=== PATIENT | male | born 1960 | race Caucasian/White ===

== ENCOUNTER 2022-02-20 23:01 | Observation (INO) ==
[2022-02-21] MEDS ORDERED: Vancomycin 1,250 MG/262.5 ML IV.SOLN IVPB ONE (00:59)
[2022-02-21] MEDS ORDERED: Piperacillin/Tazobactam 3.375 GM in 0.9 % Sodium Chloride Mini Bag 100 ML IVPB ONE (00:59)
[2022-02-21] MEDS ORDERED: Iopamidol - 370 500 ML MLS IVP ONE (00:59)
[2022-02-21 01:16] LABS: Basophils # 0.1 K/mcL (0.0-0.2); Basophils % 0.7 %; Eosinophils # 0.4 K/mcL (0.0-0.6); Eosinophils % 4.3 %; Hematocrit 36.1 % (37.5-50.1); Hemoglobin 12.1 g/dL (12.9-16.9); Immature Granulocytes % 0.4 % (0-4); Lymphocytes % 21.4 %; Mean Corpuscular HGB Conc 33.5 g/dL (31.6-35.5); Mean Corpuscular Hemoglobin 29.3 pg (28.0-33.3); Mean Corpuscular Volume 87.4 fL (83.0-100.0); Mean Platelet Volume 10.5 fL (9.4-12.4); Monocytes # 1.6 K/mcL (0.0-1.3); Monocytes % 17.6 %; Neutrophils # 5.1 K/mcL (1.6-8.9); Platelet Count 194 K/mcL (140-400); Red Blood Count 4.13 M/mcL (4.19-5.50); Segmented Neutrophils % 55.6 %; White Blood Count 9.2 K/mcL (4.3-11.1)
[2022-02-21 01:32] LABS: BUN/Creatinine Ratio 20 (6-26); Blood Urea Nitrogen 16 mg/dL (8-23); Calcium 9.2 mg/dL (8.6-10.3); Carbon Dioxide 26 mEq/L (23-29); Chloride 103 mEq/L (98-107); Glucose 136 mg/dL (70-105); Osmolality,Calculated 285 (280-300); Potassium 3.7 mEq/L (3.5-5.1); Sodium 136 mEq/L (136-145)
[2022-02-21] MEDS ORDERED: Naloxone 0.4 MG/ML INJ IVP PRN (02:54)
[2022-02-21] MEDS ORDERED: Ondansetron ODT 4 MG TAB.RAPDIS SL PRN (03:01)
[2022-02-21] MEDS ORDERED: Acetaminophen 325 MG TABLET PO PRN (03:01)
[2022-02-21] MEDS ORDERED: Melatonin 3 MG TABLET PO PRN (03:01)
[2022-02-21] MEDS ORDERED: Dextrose Gel 15 GM/37.5 ML TUBE PO PRN ×2 (03:53)
[2022-02-21] MEDS ORDERED: *HR* Dextrose 50 % in Water (Syg) 50 ML SYRINGE IVP PRN (03:53)
[2022-02-21] MEDS ORDERED: D5% in Water 1,000 ML IVC PRN (03:53)
[2022-02-21] MEDS ORDERED: Piperacillin/Tazobactam 3.375 GM in 0.9 % Sodium Chloride Mini Bag 100 ML IVPB SCH (08:00)
[2022-02-21 08:33] LABS: Hematocrit 35.6 % (37.5-50.1); Hemoglobin 11.9 g/dL (12.9-16.9); Mean Corpuscular HGB Conc 33.4 g/dL (31.6-35.5); Mean Corpuscular Hemoglobin 29.2 pg (28.0-33.3); Mean Corpuscular Volume 87.5 fL (83.0-100.0); Mean Platelet Volume 10.5 fL (9.4-12.4); Platelet Count 177 K/mcL (140-400); Red Blood Count 4.07 M/mcL (4.19-5.50); Red Cell Distribution Width 13.8 % (11.5-14.5); White Blood Count 8.7 K/mcL (4.3-11.1)
[2022-02-21 08:51] LABS: BUN/Creatinine Ratio 17 (6-26); Blood Urea Nitrogen 12 mg/dL (8-23); Calcium 8.7 mg/dL (8.6-10.3); Carbon Dioxide 26 mEq/L (23-29); Chloride 104 mEq/L (98-107); Glucose 118 mg/dL (70-105); Magnesium 1.8 mg/dL (1.6-2.6); Osmolality,Calculated 289 (280-300); Phosphorous 3.4 mg/dL (2.7-4.5); Potassium 3.8 mEq/L (3.5-5.1); Sodium 139 mEq/L (136-145)
[2022-02-21] MEDS: Insulin LISPRO 300 UNITS/3 ML VIAL SUBQ SCH ×2 (09:05→11:28)
[2022-02-21] MEDS ORDERED: predniSONE 20 MG TABLET PO ONE (10:15)
[2022-02-21 11:10] VITALS: BP 118/67; PULSE 46; TEMP 98.8; O2SAT 97
[2022-02-21] MEDS ORDERED: Vancomycin 1,250 MG/262.5 ML IV.SOLN IVPB SCH (15:00)
[2022-02-21] MEDS ORDERED: Insulin LISPRO 300 UNITS/3 ML VIAL SUBQ SCH (21:00)
[2022-02-22] MEDS ORDERED: predniSONE 20 MG TABLET PO SCH (09:00)
== END 2022-02-21 13:07 | disposition home or self-care (01) ==
LOC: EMEROOARM 23:01 → 2ANU 23:01 → SUATTDRO 02-21 02:54 → 2ANU 02-21 04:20
PROVIDERS: ADMIT Internal Medicine; ATTEND Internal Medicine

== ENCOUNTER 2022-03-07 16:18 | Inpatient (IN) ==
[2022-03-07] MEDS ORDERED: Iopamidol - 370 500 ML MLS IVP ONE ×2 (17:58→19:19)
[2022-03-07 18:15] LABS: Basophils # 0.1 K/mcL (0.0-0.2); Basophils % 0.7 %; Eosinophils # 0.4 K/mcL (0.0-0.6); Eosinophils % 2.2 %; Hematocrit 40.2 % (37.5-50.1); Hemoglobin 13.4 g/dL (12.9-16.9); Immature Granulocytes % 1.6 % (0-4); Lymphocytes # 2.3 K/mcL (0.6-4.6); Mean Corpuscular HGB Conc 33.3 g/dL (31.6-35.5); Mean Corpuscular Hemoglobin 29.5 pg (28.0-33.3); Mean Corpuscular Volume 88.5 fL (83.0-100.0); Monocytes # 1.7 K/mcL (0.0-1.3); Monocytes % 10.4 %; Neutrophils # 11.9 K/mcL (1.6-8.9); Platelet Count 229 K/mcL (140-400); Red Blood Count 4.54 M/mcL (4.19-5.50); Red Cell Distribution Width 15.5 % (11.5-14.5); Segmented Neutrophils % 71.1 %; White Blood Count 16.7 K/mcL (4.3-11.1)
[2022-03-07 18:30] LABS: Prothrombin Time 11.1 Seconds (9.4-12.1)
[2022-03-07 18:36] LABS: BUN/Creatinine Ratio 23 (6-26); Blood Urea Nitrogen 22 mg/dL (8-23); Calcium 9.2 mg/dL (8.6-10.3); Carbon Dioxide 28 mEq/L (23-29); Chloride 104 mEq/L (98-107); Creatine Kinase 19 Units/L (30-223); Glucose 127 mg/dL (70-105); Osmolality,Calculated 291 (280-300); Potassium 3.9 mEq/L (3.5-5.1); Sodium 138 mEq/L (136-145); Troponin I < 0.03 ng/mL (< 0.04)
[2022-03-07] MEDS ORDERED: Vancomycin 1,750 MG in 0.9 % Sodium Chloride 250 ML IVPB ONE (20:14)
[2022-03-07] MEDS ORDERED: Morphine Sulfate 2 MG/ML SYRINGE IVP ONE (21:04)
[2022-03-07] MEDS ORDERED: Melatonin 3 MG TABLET PO PRN (21:13)
[2022-03-07] MEDS ORDERED: Naloxone 0.4 MG/ML INJ IVP PRN (21:13)
[2022-03-07] MEDS ORDERED: Vancomycin 1,750 MG/517.5 ML IV.SOLN IVPB ONE (21:30)
[2022-03-07] MEDS ORDERED: Dextrose Gel 15 GM/37.5 ML TUBE PO PRN ×2 (23:59)
[2022-03-07] MEDS ORDERED: *HR* Dextrose 50 % in Water (Syg) 50 ML SYRINGE IVP PRN (23:59)
[2022-03-07] MEDS ORDERED: D5% in Water 1,000 ML IVC PRN (23:59)
[2022-03-08] MEDS: cefTRIAXone 1,000 MG in 0.9 % Sodium Chloride Mini Bag 100 ML IVPB SCH ×2 (01:13→23:55)
[2022-03-08] MEDS: Acetaminophen 325 MG TABLET PO PRN ×2 (01:46→07:48)
[2022-03-08 02:49] LABS: Amphetamine Screen,Urine Negative ng/mL (Cutoff=1000); Barbiturate Screen,Urine Negative ng/mL (Cutoff=200); Benzodiazepines Screen,Urine Negative ng/mL (Cutoff=200); Cannabinoid Screen,Urine Positive ng/mL (Cutoff = 50); Cocaine Screen,Urine Negative ng/mL (Cutoff= 300); Opiate Screen,Urine Positive ng/mL (Cutoff=300); Phencyclidine Screen,Urine Negative ng/mL (Cutoff=25)
[2022-03-08] MEDS: *HR* Heparin 5,000 UNIT/ML VIAL SQ SCH ×3 (06:22→22:00)
[2022-03-08] MEDS: Insulin LISPRO 300 UNITS/3 ML VIAL SUBQ SCH ×3 (07:45→17:27)
[2022-03-08] MEDS: Aspirin Enteric Coated 81 MG Tablet PO SCH (09:52)
[2022-03-08 10:01] LABS: Hematocrit 41.3 % (37.5-50.1); Hemoglobin 13.5 g/dL (12.9-16.9); Mean Corpuscular HGB Conc 32.7 g/dL (31.6-35.5); Mean Corpuscular Hemoglobin 28.8 pg (28.0-33.3); Mean Corpuscular Volume 88.2 fL (83.0-100.0); Mean Platelet Volume 10.7 fL (9.4-12.4); Platelet Count 198 K/mcL (140-400); Red Blood Count 4.68 M/mcL (4.19-5.50); Red Cell Distribution Width 15.5 % (11.5-14.5); White Blood Count 13.8 K/mcL (4.3-11.1)
[2022-03-08] MEDS: Vancomycin 1,250 MG/262.5 ML IV.SOLN IVPB SCH ×2 (10:18→22:00)
[2022-03-08 10:22] LABS: BUN/Creatinine Ratio 25 (6-26); Blood Urea Nitrogen 16 mg/dL (8-23); Calcium 8.8 mg/dL (8.6-10.3); Carbon Dioxide 27 mEq/L (23-29); Chloride 104 mEq/L (98-107); Chol/HDL Ratio 3.1 (0-4.9); Cholesterol 174 mg/dL (< 200); Glucose 121 mg/dL (70-105); HDL Cholesterol 57 mg/dL (40-59); LDL Cholesterol,Calculated 67 mg/dL (< 100); Osmolality,Calculated 286 (280-300); Sodium 137 mEq/L (136-145); Triglycerides 249 mg/dL (< 150)
[2022-03-08 10:31] LABS: Estimated Average Glucose 131 mg/dl; Hemoglobin A1C 6.2 %
[2022-03-08] MEDS: *HR* HYDROcodone/Acet 5/325 mg TABLET PO PRN ×2 (17:17→23:24)
[2022-03-09] MEDS: *HR* Heparin 5,000 UNIT/ML VIAL SQ SCH ×3 (05:31→21:12)
[2022-03-09] MEDS: *HR* HYDROcodone/Acet 5/325 mg TABLET PO PRN ×2 (05:36→16:30)
[2022-03-09] MEDS: Insulin LISPRO 300 UNITS/3 ML VIAL SUBQ SCH ×3 (09:02→16:31)
[2022-03-09] MEDS: Aspirin Enteric Coated 81 MG Tablet PO SCH (09:53)
[2022-03-09] MEDS: MethylPREDNISolone 40 MG/ML VIAL IVP SCH ×3 (09:54→22:54)
[2022-03-09] MEDS ORDERED: Ondansetron 4 MG/2 ML VIAL IVP PRN (09:58)
[2022-03-09] MEDS: *HR* OxyCODONE/APAP 5/325 TABLET PO PRN ×2 (10:24→22:54)
[2022-03-09] MEDS: Vancomycin 1,250 MG/262.5 ML IV.SOLN IVPB SCH (10:36)
[2022-03-09] MEDS ORDERED: Nitroglycerin 0.4 MG TAB.SUBL SL PRN (13:53)
[2022-03-09] MEDS ORDERED: Loratadine 10 MG TABLET PO PRN (13:53)
[2022-03-09] MEDS: Vancomycin 1,500 MG/265 ML IV.SOLN IVPB SCH (21:12)
[2022-03-10] MEDS: cefTRIAXone 1,000 MG in 0.9 % Sodium Chloride Mini Bag 100 ML IVPB SCH (01:36)
[2022-03-10 03:32] LABS: Basophils % 0.1 %; Hematocrit 36.1 % (37.5-50.1); Immature Granulocytes % 0.8 % (0-4); Lymphocytes # 0.7 K/mcL (0.6-4.6); Lymphocytes % 7.1 %; Mean Corpuscular HGB Conc 33.2 g/dL (31.6-35.5); Mean Corpuscular Volume 87.2 fL (83.0-100.0); Mean Platelet Volume 10.9 fL (9.4-12.4); Monocytes # 0.6 K/mcL (0.0-1.3); Monocytes % 6.1 %; Neutrophils # 7.8 K/mcL (1.6-8.9); Platelet Count 189 K/mcL (140-400); Red Blood Count 4.14 M/mcL (4.19-5.50); Red Cell Distribution Width 14.7 % (11.5-14.5); Segmented Neutrophils % 85.9 %; White Blood Count 9.1 K/mcL (4.3-11.1)
[2022-03-10 03:55] LABS: BUN/Creatinine Ratio 23 (6-26); Blood Urea Nitrogen 13 mg/dL (8-23); Calcium 9.1 mg/dL (8.6-10.3); Carbon Dioxide 23 mEq/L (23-29); Chloride 105 mEq/L (98-107); Glucose 158 mg/dL (70-105); Magnesium 2.2 mg/dL (1.6-2.6); Osmolality,Calculated 289 (280-300); Phosphorous 2.6 mg/dL (2.7-4.5); Potassium 3.9 mEq/L (3.5-5.1); Sodium 138 mEq/L (136-145)
[2022-03-10] MEDS: *HR* Heparin 5,000 UNIT/ML VIAL SQ SCH ×3 (05:55→22:10)
[2022-03-10] MEDS: *HR* OxyCODONE/APAP 5/325 TABLET PO PRN ×2 (10:02→22:09)
[2022-03-10] MEDS: hydroCHLOROthiazide 25 MG TABLET PO SCH (10:02)
[2022-03-10] MEDS: lisinopriL 10 MG TABLET PO SCH (10:02)
[2022-03-10] MEDS: Aspirin Enteric Coated 81 MG Tablet PO SCH (10:02)
[2022-03-10] MEDS: Insulin LISPRO 300 UNITS/3 ML VIAL SUBQ SCH ×3 (10:03→17:42)
[2022-03-10] MEDS: MethylPREDNISolone 40 MG/ML VIAL IVP SCH (10:08)
[2022-03-10] MEDS: Vancomycin 1,500 MG/265 ML IV.SOLN IVPB SCH ×2 (12:36→22:10)
[2022-03-10] MEDS ORDERED: MethylPREDNISolone 40 MG/ML VIAL IVP SCH (22:00)
[2022-03-11] MEDS: cefTRIAXone 1,000 MG in 0.9 % Sodium Chloride Mini Bag 100 ML IVPB SCH (02:15)
[2022-03-11 03:20] VITALS: TEMP 98
[2022-03-11] MEDS: *HR* Heparin 5,000 UNIT/ML VIAL SQ SCH (05:37)
[2022-03-11 07:32] VITALS: BP 160/81; PULSE 81; O2SAT 93
[2022-03-11] MEDS: Insulin LISPRO 300 UNITS/3 ML VIAL SUBQ SCH (07:59)
[2022-03-11] MEDS: hydroCHLOROthiazide 25 MG TABLET PO SCH (08:18)
[2022-03-11] MEDS: *HR* OxyCODONE/APAP 5/325 TABLET PO PRN (08:18)
[2022-03-11] MEDS: lisinopriL 10 MG TABLET PO SCH (08:18)
[2022-03-11] MEDS: Aspirin Enteric Coated 81 MG Tablet PO SCH (08:18)
== END 2022-03-11 13:44 | disposition home or self-care (01) | DRG 603 ==
LOC: 3BNU 16:18 → EMEROOARM 16:18 → SUATTDRO 03-08 13:11 → 3BNU 03-08 13:52 → SUATTDRO 03-09 15:06
PROVIDERS: ADMIT Internal Medicine; ATTEND Internal Medicine